=== PATIENT | female | born 1960 | race Caucasian/White ===

== ENCOUNTER 2020-01-11 18:20 | Emergency (ER) | payer OTHER, MEDICARE ==
[~2020-01-11] VITALS: Ht 160 cm; Wt 122.5 kg
--- NOTE | ~2020-01-11 | EKG ---
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
[~2020-01-11 18:20] MED LIST: ACCUNEB SO1.25 MG/1; AMOXICILLIN 50500 MG PO; AUGMENTIN 875875 MG PO; BACTROBAN22 GM; COZAAR 50 MG TA50 M2 PO; CYMBALTA60 MG PO; FLEXERIL PO; HYDROCODONE-AP1 EAC6; IBUPROFEN 800800 M1; IRON325 MG PO; OMEPRAZOLE40 MG PO; SENNA8.6 M1; TRAZODONE HCL100 MG PO; ZESTRIL40 MG PO; ZYRTEC10 MG PO
[2020-01-11 19:36] LABS: URINE BILIRUBIN NEGATIVE (Negative); URINE BLOOD 1+ (Negative); URINE CLARITY CLEAR; URINE COLOR YELLOW; URINE GLUCOSE-RANDOM* NEGATIVE (Negative); URINE KETONES NEGATIVE (Negative); URINE LEUKOCYTES-REFLEX TRACE (Negative); URINE NITRITE-REFLEX NEGATIVE (Negative); URINE PROTEIN (DIPSTICK) NEGATIVE (Negative); URINE SPECIFIC GRAVITY <= 1.005 (1.005-1.035); URINE UROBILINOGEN 0.2 E.U./dl (0.2-1.0)
[2020-01-11 19:51] LABS: BACTERIA-REFLEX 1-9 Few /HPF (None Seen); CASTS None Seen /LPF (None Seen); CRYSTALS None Seen /LPF (None Seen); SQUAMOUS 0-3 Few /LPF (0-3); URINE RBC 0-2 Rare /HPF (0-2); URINE WBC-REFLEX 0-5 Rare /HPF (0-5)
[2020-01-11 20:19] LABS: ABSOLUTE NEUTROPHILS 9.4 thou/uL (1.4-8.2); BASOPHILS 0.8 % (0.0-2.0); EOSINOPHILS 0.1 % (0.0-3.0); HEMATOCRIT 36.3 % (37.0-47.0); HEMOGLOBIN 12.4 gm/dL (12.0-15.0); LYMPHOCYTES 15.8 % (24.0-44.0); MCH 30.5 pg (26.0-34.0); MCHC 34.2 g/dL (28.0-37.0); MCV 89.1 fL (80.0-100.0); MONOCYTES 4.7 % (1.0-8.0); PLATELET COUNT 326 thou/uL (150-400); POLYS 78.6 % (36.0-66.0); RBC 4.07 mil/uL (4.20-5.00); RDW 13.5 % (10.5-14.5); WBC 11.9 thou/uL (4.0-11.0)
[2020-01-11 20:27] LABS: ANION GAP 9 mmol/L (7-16); BUN 9 mg/dL (7-18); CALCIUM 8.9 mg/dL (8.5-10.1); CHLORIDE 103 mmol/L (98-107); CO2 27 mmol/L (21-32); GLUCOSE 100 mg/dL (74-106); POTASSIUM 3.5 mmol/L (3.5-5.1); SODIUM 139 mmol/L (136-145)
[2020-01-11 20:37] LABS: ALBUMIN 3.7 g/dL (3.4-5.0); LIPASE 71 U/L (73-393); SGOT 31 U/L (15-37); SGPT 37 U/L (30-65); TOTAL BILIRUBIN 0.4 mg/dL (0.2-1.0); TOTAL PROTEIN 7.8 g/dL (6.4-8.2); TROPONIN-I <0.06 ng/mL (<0.06)
[2020-01-11] MEDS ORDERED: PROTONIX 20 MG20 M1 PO (21:07)
[2020-01-11] MEDS ORDERED: PROMS25 WY RECTAL (21:07)
[2020-01-11 23:54] VITALS: BP 137/76
== END 2020-01-11 23:55 | disposition home or self-care (01) ==
LOC: ER 18:20
PROVIDERS: Emergency Medicine
DX: K80.20 Calculus of gallbladder without cholecystitis without obstruction (principal); K27.9 Peptic ulcer, site unspecified, unspecified as acute or chronic, without hemorrhage or perforation; D18.09 Hemangioma of other sites; R07.89 Other chest pain; K21.9 Gastro-esophageal reflux disease without esophagitis; R11.2 Nausea with vomiting, unspecified; J45.909 Unspecified asthma, uncomplicated; Z86.2 Personal history of diseases of the blood and blood-forming organs and certain disorders involving the immune mechanism; Z79.1 Long term (current) use of non-steroidal anti-inflammatories (NSAID); Z79.899 Other long term (current) drug therapy; Z88.8 Allergy status to other drugs, medicaments and biological substances